=== PATIENT | male | born 1975 | race Caucasian/White ===

== ENCOUNTER 2018-03-25 14:15 | Emergency (ER) | payer MEDICARE ==
[2018-03-25 14:52] VITALS: BP 143/99
--- NOTE | 2018-03-25 16:40 | ED Physician Documentation ---
PD HPI DYSPNEA - Stated complaint Stated Complaint: DIFF BREATHING - Chief complaint Chief Complaint: Resp - History obtained from History obtained from: Patient PD PAST MEDICAL HISTORY - Present Medications Home Medications: Ambulatory Orders Medication Instructions Recorded Confirmed Albuterol Sulf [Ventolin Hfa 1 - 2 puffs INH Q4HR PRN 03/25/18 03/25/18 Inhaler] - Allergies Allergies/Adverse Reactions: Allergies Allergy/AdvReac Type Severity Reaction Status Date / Time Penicillins Allergy Respiratory Verified 03/25/18 14:52 Results - Vitals Vitals: Vital Signs - 24 hr 03/25/18 14:48 Temperature 36.4 C L Heart Rate 116 H Respiratory 20 Rate Blood Pressure 143/99 H O2 Saturation 99 Oxygen O2 Source Room air PD MEDICAL DECISION MAKING - Sepsis Event Vital Signs: Vital Signs - 24 hr 03/25/18 14:48 Temperature 36.4 C L Heart Rate 116 H Respiratory 20 Rate Blood Pressure 143/99 H O2 Saturation 99 Oxygen O2 Source Room air
== END 2018-03-25 17:17 | disposition left against medical advice (07) ==
LOC: ED 14:15
DX: Z53.21 Procedure and treatment not carried out due to patient leaving prior to being seen by health care provider (principal)

== ENCOUNTER 2018-03-26 15:01 | Outpatient (CLI) | payer MEDICARE, MEDICAID | END 2018-03-26 15:02 | disposition critical access hospital (66) | LOC: EMS 15:01 | PROVIDERS: ATTEND Surgery | DX: M25.561 Pain in right knee (principal); M79.604 Pain in right leg | CPT/HCPCS: A0425; A0429 ==

== ENCOUNTER 2018-03-26 15:37 | Emergency (ER) | payer MEDICAID, MEDICARE ==
[2018-03-26] MEDS ORDERED: CYCLOBENZAPRINE 10 MG TABLET PO STA (16:18)
[2018-03-26] MEDS ORDERED: IBUPROFEN 400 MG TABLET PO STA (16:18)
[2018-03-26] MEDS ORDERED: ALBUTEROL NEB 2.5 MG/3 ML INH STA (16:19)
--- NOTE | 2018-03-26 17:03 | Ultrasound Report ---
Procedure Date: 03/26/2018 Accession Number: [id number] / [id number] Procedure: US - Duplex Ext Veins Right CPT Code: FULL RESULT: EXAM: RIGHT LOWER EXTREMITY VENOUS ULTRASOUND EXAM DATE: 03/26/2018 04:45 PM. CLINICAL HISTORY: History of deep venous thrombosis. Right leg pain. COMPARISON: None. TECHNIQUE: Real-time sonographic vascular imaging was performed by the box blank machine operator through the lower extremity utilizing both color-flow and Doppler spectral analysis. Multiple charter representative static images were saved for review. FINDINGS: Common Femoral Vein (CFV): Normal. CFV-GSV Junction: Normal. Profunda Femoral Vein (PFV): Normal. Femoral Vein (FV) Prox: Normal. Femoral Vein (FV) Mid: Normal. Femoral Vein (FV) Dist: Normal. Popliteal Vein: Normal. Posterior Tibial Veins: Normal. Peroneal Veins: Normal. Contralateral Side CFV: Not interrogated. Other: None. IMPRESSION: No evidence for deep venous thrombosis. RADIA
--- NOTE | 2018-03-26 17:25 | ED Physician Documentation ---
History of Present Illness - Stated complaint Stated Complaint: KNEE PX - Chief complaint Chief Complaint: General - Additonal information Additional information: hx from pt 42 male states hx blodo clots no on blood thinners fairly active awoke with pain to L cald, lateral popliteal region and thigh to groin no swelling no redness mild cough and occ wheeze but has seasonal allergies and asthma and needs a new MDI Review of Systems Cardiac: denies: Chest pain / pressure Respiratory: reports: Cough, Wheezing. denies: Dyspnea Musculoskeletal: reports: Extremity pain. denies: Extremity swelling Endocrine: denies: Easy bruising / bleeding Immunocompromised: denies: Immunocompromised PD PAST MEDICAL HISTORY - Past Medical History Past Medical History: Yes Cardiovascular: None Respiratory: Asthma Neuro: None Endocrine/Autoimmune: None GI: GERD : None HEENT: None Psych: Depression, Anxiety, Bipolar disorder, Schizophrenia Musculoskeletal: None Derm: None - Past Surgical History Past Surgical History: Yes - Present Medications Home Medications: Ambulatory Orders Medication Instructions Recorded Confirmed Albuterol Sulf [Ventolin Hfa 1 - 2 puffs INH Q4HR PRN 03/25/18 03/26/18 Inhaler] Albuterol Sulfate [Proair Hfa 2 puffs INH Q4H PRN #1 inhaler 03/26/18 Inhaler] Ibuprofen [Motrin] 400 mg PO Q6H PRN #30 tablet 03/26/18 - Allergies Allergies/Adverse Reactions: Allergies Allergy/AdvReac Type Severity Reaction Status Date / Time Penicillins Allergy Respiratory Verified 03/25/18 14:52 - Social History Does the pt smoke?: Yes Smoking Status: Current some day smoker Does the pt drink ETOH?: Yes Does the pt have substance abuse?: Yes Substance Use and Type: Marijuana - POLST Patient has POLST: No PD ED PE NORMAL - Vitals Vital signs reviewed: Yes - Cardiac Cardiac: RRR - Respiratory Respiratory: Other (mild wheeze good air movement) - Abdomen Abdomen: Soft, Non tender - Extremities Extremities: Other (no edema, no redness, no warmth, TTP lateral calf and politeal region s cord and to ant thigh, MSV intact) Results - Vitals Vitals: Vital Signs - 24 hr 03/26/18 15:39 Temperature 37.3 C Heart Rate 77 Respiratory 14 Rate Blood Pressure 133/84 H O2 Saturation 95 Oxygen O2 Source Room air PD MEDICAL DECISION MAKING - Sepsis Event Vital Signs: Vital Signs - 24 hr 03/26/18 15:39 Temperature 37.3 C Heart Rate 77 Respiratory 14 Rate Blood Pressure 133/84 H O2 Saturation 95 Oxygen O2 Source Room air Departure - Departure Disposition: 01 Home, Self Care Clinical Impression: Leg strain Condition: Good Instructions: ED Strain Muscle Ext, Inhaler Metered Dose Dc, Asthma Dc Prescriptions: Albuterol Sulfate [Proair Hfa Inhaler] 2 puffs INH Q4H PRN #1 inhaler PRN Reason: Shortness Of Air/Wheezing Ibuprofen [Motrin] 400 mg PO Q6H PRN #30 tablet PRN Reason: Pain Comments: The ultrasound did not show a blood clot And the exam does not suggest an infection So the pain is likely muscular Recommend an LINDA wrap, ice and elevation as well as motrin and tylenol I have refilled you inhaler as well Return if worse - very rarely a small blood clot cannot be seen on initial imaging
[2018-03-26 17:43] VITALS: BP 130/80
== END 2018-03-26 17:42 | disposition home or self-care (01) ==
LOC: EDUNIT# → ED 15:37
DX: S86.901A Unspecified injury of unspecified muscle(s) and tendon(s) at lower leg level, right leg, initial encounter (principal)
CPT/HCPCS: 93971; 99283; A9270

== ENCOUNTER 2019-06-04 12:07 | Emergency (ER) | payer MEDICARE, MEDICAID ==
[2019-06-04 12:21] VITALS: BP 128/85
[2019-06-04] MEDS ORDERED: CHERRY SYRUP 10 ML UDC PO ONE (13:01)
[2019-06-04] MEDS ORDERED: DEXAMETHASONE 10 MG/ML VIAL PO STA (13:01)
--- NOTE | 2019-06-04 13:04 | ED Physician Documentation ---
PD HPI DYSPNEA - Stated complaint Stated Complaint: SOA/MED REFILL - Chief complaint Chief Complaint: Resp - History obtained from History obtained from: Patient - History of Present Illness Timing - onset: Today Timing - onset during: Rest Timing - duration: Hours Timing - details: Gradual onset, Still present Inciting event(s): Out of meds, URI Improved by: Inhaler/neb Worsened by: Exertion, Coughing, Allergens Associated symptoms: Cough, Wheezing Similar symptoms before: Diagnosis (asthma) Recently seen: Not recently seen - Additional information Additional information: 43-year-old homeless male with history of asthma has developed worsening of his symptoms and he ran out of his Ventolin inhaler this morning. He states that he thinks he has mostly environmental allergies and they are bothering him right now. He does have a cough and congestion and he has had a ruptured right TM previously. Review of Systems Constitutional: denies: Fever Eyes: denies: Decreased vision Ears: denies: Ear pain Nose: reports: Rhinorrhea / runny nose, Congestion Throat: denies: Sore throat Cardiac: denies: Chest pain / pressure, Palpitations Respiratory: reports: Dyspnea, Cough, Wheezing GI: denies: Vomiting PD PAST MEDICAL HISTORY - Past Medical History Past Medical History: Yes Cardiovascular: None Respiratory: Asthma Neuro: None Endocrine/Autoimmune: None GI: GERD : None HEENT: None Psych: Depression, Anxiety, Bipolar disorder, Schizophrenia Musculoskeletal: Chronic back pain Derm: None - Past Surgical History Past Surgical History: Yes - Present Medications Home Medications: Ambulatory Orders Medication Instructions Recorded Confirmed Albuterol Sulf [Ventolin Hfa 1 - 2 puffs INH Q4HR PRN 03/25/18 03/26/18 Inhaler] Albuterol Sulfate [Proair Hfa 2 puffs INH Q4H PRN #1 inhaler 03/26/18 Inhaler] Albuterol Sulf [Ventolin Hfa 1 - 2 puffs INH Q4HR PRN #1 inhaler 07/25/18 Inhaler] predniSONE [Prednisone] 40 mg PO DAILY #10 tablet 07/25/18 Albuterol Sulf [Ventolin Hfa 1 - 2 puffs INH Q4HR PRN #1 inhaler 06/04/19 Inhaler] Azithromycin [Zithromax] 250 mg PO DAILY #6 tablet 06/04/19 - Allergies Allergies/Adverse Reactions: Allergies Allergy/AdvReac Type Severity Reaction Status Date / Time Penicillins Allergy Respiratory Verified 06/04/19 12:20 - Social History Does the pt smoke?: Yes Smoking Status: Current every day smoker Does the pt drink ETOH?: Yes Does the pt have substance abuse?: Yes Substance Use and Type: Marijuana - Immunizations Immunizations are current?: Yes - POLST Patient has POLST: No PD ED PE NORMAL - Vitals Vital signs reviewed: Yes (hypertensive) - General General: Alert and oriented X 3, No acute distress, Well developed/nourished - HEENT HEENT: Atraumatic, PERRL, EOMI, Pharynx benign, Other (There is inflamation to the right TM and not to the left) - Neck Neck: Supple, no meningeal sign, No bony TTP - Cardiac Cardiac: RRR, No murmur - Respiratory Respiratory: No respiratory distress, Other (diminished breath sounds. ) - Abdomen Abdomen: Soft, Non tender - Back Back: No CVA TTP, No spinal TTP - Derm Derm: Normal color, Warm and dry, No rash - Extremities Extremities: No deformity, No edema - Neuro Neuro: Alert and oriented X 3, events manager 2-12 intact, No motor deficit, No sensory deficit, Normal speech Eye Opening: Spontaneous Motor: Obeys Commands Verbal: Oriented GCS Score: 15 - Psych Psych: Normal mood, Normal affect Results - Vitals Vitals: Vital Signs - 24 hr 06/04/19 12:17 Temperature 36.7 C Heart Rate 97 Respiratory 16 Rate Blood Pressure 128/85 H O2 Saturation 99 Oxygen O2 Source Room air PD MEDICAL DECISION MAKING - ED course Complexity details: reviewed old records, considered differential, d/w patient ED course: 43-year-old male with history of asthma has an exacerbation of symptoms and is run out of his Ventolin. He has otitis on exam and he is administered dexamethasone 10 mg orally we will place him on a course of zithromax and give him an albuterol inhaler. Departure - Departure Disposition: 01 Home, Self Care Clinical Impression: Asthma exacerbation Qualifiers: Asthma severity: mild Asthma persistence: intermittent Qualified Code(s): J45.21 - Mild intermittent asthma with (acute) exacerbation Otitis media Qualifiers: Otitis media type: suppurative Chronicity: acute Laterality: right Recurrence: non-recurrent Spontaneous tympanic membrane rupture: without spontaneous rupture Qualified Code(s): H66.001 - Acute suppurative otitis media without spontaneous rupture of ear drum, right ear Condition: Stable Instructions: ED Otitis Media Acute Adult, ED Reactive Airway Disease Follow-Up: [facility] [Provider Group] Prescriptions: Albuterol Sulf [Ventolin Hfa Inhaler] 1 - 2 puffs INH Q4HR PRN #1 inhaler PRN Reason: Shortness Of Air/Wheezing Azithromycin [Zithromax] 250 mg PO DAILY #6 tablet
== END 2019-06-04 13:12 | disposition home or self-care (01) ==
LOC: ED 12:07
DX: J45.21 Mild intermittent asthma with (acute) exacerbation (principal); H66.001 Acute suppurative otitis media without spontaneous rupture of ear drum, right ear; F17.200 Nicotine dependence, unspecified, uncomplicated; Z76.0 Encounter for issue of repeat prescription
CPT/HCPCS: 99282; 99284; A9270

== ENCOUNTER 2020-06-02 03:20 | Outpatient (CLI) | payer MEDICARE, MEDICAID | END 2020-06-02 03:21 | disposition EMS.NT | LOC: EMS 03:20 | PROVIDERS: ATTEND Surgery | DX: R06.02 Shortness of breath (principal) ==

== ENCOUNTER 2020-06-04 07:16 | Outpatient (CLI) | payer MEDICARE, MEDICAID | END 2020-06-04 07:17 | disposition EMS.NT | LOC: EMS 07:16 | PROVIDERS: ATTEND Surgery | DX: R06.00 Dyspnea, unspecified (principal); R06.2 Wheezing ==

== ENCOUNTER 2020-06-05 01:18 | Outpatient (CLI) | payer MEDICARE, MEDICAID | END 2020-06-05 01:19 | disposition EMS.NT | LOC: EMS 01:18 | PROVIDERS: ATTEND Surgery | DX: R05 Cough (principal); R06.2 Wheezing ==

== ENCOUNTER 2020-07-15 10:32 | Emergency (ER) | payer MEDICARE, MEDICAID ==
[2020-07-15 10:44] VITALS: BP 141/94
[2020-07-15] MEDS ORDERED: CLINDAMYCIN 150 MG CAPSULE PO STA (10:45)
--- NOTE | 2020-07-15 10:47 | ED Physician Documentation ---
History of Present Illness - Stated complaint Stated Complaint: TEETH PX - Chief complaint Chief Complaint: Wound - History obtained from History obtained from: Patient - History of Present Illness Timing: How many days ago (several) Pain level max: 5 Pain level now: 4 - Additonal information Additional information: states dental pain for the past several days. worse with eating and drinking. nothing makes it better. No fevers or chills. no vomiting. Review of Systems Constitutional: denies: Fever, Chills GI: denies: Vomiting Skin: denies: Rash Musculoskeletal: denies: Neck pain, Back pain Neurologic: denies: Headache PD PAST MEDICAL HISTORY - Past Medical History Cardiovascular: None Respiratory: Asthma Neuro: None Endocrine/Autoimmune: None GI: GERD : None HEENT: None Psych: Depression, Anxiety, Bipolar disorder, Schizophrenia Musculoskeletal: Chronic back pain Derm: None - Past Surgical History Past Surgical History: Yes - Present Medications Home Medications: Ambulatory Orders Medication Instructions Recorded Confirmed Albuterol Sulf [Ventolin Hfa 1 - 2 puffs INH Q4HR PRN 03/25/18 07/15/20 Inhaler] Albuterol Sulf [Ventolin Hfa 1 - 2 puffs INH Q4HR PRN #1 inhaler 07/15/20 Inhaler] clindamycin HCL [Cleocin HCl] 300 mg PO Q6H #40 capsule 07/15/20 - Allergies Allergies/Adverse Reactions: Allergies Allergy/AdvReac Type Severity Reaction Status Date / Time Penicillins Allergy Respiratory Verified 07/15/20 10:44 - Social History Does the pt smoke?: Yes Smoking Status: Current every day smoker Does the pt drink ETOH?: Yes Does the pt have substance abuse?: Yes - Immunizations Immunizations are current?: Yes - POLST Patient has POLST: No PD ED PE NORMAL - Vitals Vital signs reviewed: Yes - General General: Alert and oriented X 3, No acute distress - HEENT HEENT: Moist mucous membranes, Other (poor dentition throughout) - Neck Neck: Supple, no meningeal sign - Cardiac Cardiac: RRR - Respiratory Respiratory: No respiratory distress, Clear bilaterally - Derm Derm: Warm and dry - Neuro Neuro: Alert and oriented X 3 - Psych Psych: Normal mood, Normal affect Results - Vitals Vitals: Vital Signs - 24 hr 07/15/20 10:39 Temperature 36.5 C Heart Rate 96 Respiratory 18 Rate Blood Pressure 141/94 H O2 Saturation 97 Oxygen O2 Source Room air PD MEDICAL DECISION MAKING - ED course Complexity details: considered differential, d/w patient ED course: Patient with dental caries and dental pain. We will place on clindamycin for home. He is also out of his albuterol and requests a refill. This was done. Normal phonation. No trismus. No facial swelling. no abscess. Patient counseled regarding signs and symptoms for which I believe and urgent re- evaluation would be necessary. Patient with good understanding of and agreement to plan and is comfortable going home at this time This document was made in part using voice recognition software. While efforts are made to proofread this document, sound alike and grammatical errors may occur. Departure - Departure Disposition: 01 Home, Self Care Clinical Impression: Dental caries Condition: Good Instructions: ED Tooth Pain Follow-Up: [facility] [Provider Group] Prescriptions: Albuterol Sulf [Ventolin Hfa Inhaler] 1 - 2 puffs INH Q4HR PRN #1 inhaler PRN Reason: Shortness Of Air/Wheezing clindamycin HCL [Cleocin HCl] 300 mg PO Q6H #40 capsule Comments: Take all antibiotics until gone. Follow-up with a dentist for further care. Return if you worsen.
== END 2020-07-15 11:05 | disposition home or self-care (01) ==
LOC: ED 10:32
DX: K02.9 Dental caries, unspecified (principal); J45.909 Unspecified asthma, uncomplicated; F17.200 Nicotine dependence, unspecified, uncomplicated
CPT/HCPCS: 99282; 99284; A9270

== ENCOUNTER 2020-07-21 13:35 | Emergency (ER) | payer MEDICARE, MEDICAID ==
--- NOTE | 2020-07-21 14:14 | ED Physician Documentation ---
History of Present Illness - Stated complaint Stated Complaint: SORE ON FACE - Chief complaint Chief Complaint: Wound - Additonal information Additional information: 44-year-old male presents the emergency department for evaluation of a pimple on the right side of his right nasolabial fold. He states it started about a week ago. He typically is able to express clear fluid from it. He has been on clindamycin recently for a tooth infection and remains on that prescription. He has no fevers or facial swelling. Review of Systems Constitutional: reports: Reviewed and negative Eyes: reports: Reviewed and negative Ears: reports: Reviewed and negative Nose: reports: Reviewed and negative Throat: reports: Dental pain / toothache Cardiac: reports: Reviewed and negative Respiratory: reports: Reviewed and negative GI: reports: Reviewed and negative : reports: Reviewed and negative Skin: reports: Lesions (carbuncle right nasal labial fold) Musculoskeletal: reports: Reviewed and negative Neurologic: reports: Reviewed and negative PD PAST MEDICAL HISTORY - Past Medical History Past Medical History: Yes Cardiovascular: None Respiratory: Asthma Neuro: None Endocrine/Autoimmune: None GI: GERD : None HEENT: None Psych: Depression, Anxiety, Bipolar disorder, Schizophrenia Musculoskeletal: Chronic back pain Derm: None - Past Surgical History Past Surgical History: Yes - Present Medications Home Medications: Ambulatory Orders Medication Instructions Recorded Confirmed Albuterol Sulf [Ventolin Hfa 1 - 2 puffs INH Q4HR PRN #1 inhaler 07/15/20 Inhaler] clindamycin HCL [Cleocin HCl] 300 mg PO Q6H #40 capsule 07/15/20 Mupirocin Calcium [Mupirocin] 30 gm TP TID #1 tube 07/21/20 - Allergies Allergies/Adverse Reactions: Allergies Allergy/AdvReac Type Severity Reaction Status Date / Time Penicillins Allergy Respiratory Verified 07/21/20 13:47 - Social History Does the pt smoke?: Yes Smoking Status: Current every day smoker Does the pt drink ETOH?: Yes Does the pt have substance abuse?: Yes - Immunizations Immunizations are current?: Yes - POLST Patient has POLST: No PD ED PE EXPANDED - General General: Alert, No acute distress, Well developed/nourished - HEENT HEENT: Other (3 mm carbuncle right nasolabial fold. Clear drainage. No surrounding erythema or fluctuance.) - Neck Neck: Supple w/out meningeal sx, No tenderness - Cardiac Cardiac: Regular Rate, Radial strong equal - Respiratory Respiratory: Clear to ausultation lolis. No: Distress, Labored Results - Vitals Vitals: Vital Signs - 24 hr 07/21/20 13:39 Temperature 36.3 C L Heart Rate 80 Respiratory 16 Rate Blood Pressure 156/100 H O2 Saturation 97 Oxygen O2 Source Room air PD MEDICAL DECISION MAKING - ED course Complexity details: d/w patient ED course: 44-year-old male presents to the emergency department with a furunicle/pimple on the right nasolabial fold. On exam there does not appear to be any significant surrounding erythema. He does have clear drainage but no fluctuance. I do not feel that he would benefit from incision and drainage. At this time I will recommend a warm compress over the carbuncle. I will also prescribe mupirocin ointment. He is to continue the clindamycin that is already taken for his dental infection. Emergent return precautions discussed Departure - Departure Disposition: 01 Home, Self Care Clinical Impression: Carbuncle and furuncle of face Condition: Stable Record reviewed to determine appropriate education?: Yes Instructions: Carbuncles Prescriptions: Mupirocin Calcium [Mupirocin] 30 gm TP TID #1 tube Comments: Mitchel please apply a warm compress to your boil for 10 minutes 3 times a day. It would not benefit from incision and drainage today. After you place the warm compress then apply the antibiotic ointment as prescribed. Please complete the clindamycin that you are already taking. If you develop fevers, have facial swelling or feel that the infection is not improving return to the ER for a second look
[2020-07-21 14:23] VITALS: BP 148/99
== END 2020-07-21 14:23 | disposition home or self-care (01) ==
LOC: ED 13:35
DX: J34.0 Abscess, furuncle and carbuncle of nose (principal); F17.200 Nicotine dependence, unspecified, uncomplicated
CPT/HCPCS: 99282; 99283

== ENCOUNTER 2023-11-27 21:22 | Outpatient (CLI) | payer MEDICARE, MEDICAID | END 2023-11-27 23:59 | disposition critical access hospital (66) | LOC: EMS 21:22 | DX: J45.909 Unspecified asthma, uncomplicated (principal); R45.1 Restlessness and agitation; R61 Generalized hyperhidrosis; R09.89 Other specified symptoms and signs involving the circulatory and respiratory systems; Y08.89XA Assault by other specified means, initial encounter | CPT/HCPCS: A0425; A0427 ==

== ENCOUNTER 2023-11-27 21:44 | Emergency (ER) | payer MEDICARE, MEDICAID ==
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
[2023-11-27] MEDS: ALBUTEROL NEB 2.5 MG/3 ML INH STA (23:32)
--- NOTE | 2023-11-28 00:24 | XRAY Report ---
PROCEDURE: Chest 1V INDICATIONS: chest pain TECHNIQUE: One view of the chest was acquired. COMPARISON: None. FINDINGS: Surgical changes and devices: None. Lungs and pleura: Hyperinflation consistent with COPD. There is a 1 nodule in the left upper lung zo ne. No pleural effusions or pneumothorax. Lungs are clear. Mediastinum: Mediastinal contours appear normal. Heart size is normal. Bones and chest wall: No suspicious bony lesions. Overlying soft tissues appear unremarkable. IMPRESSION: 1. No acute cardiopulmonary process. 2. COPD. 3. A 1 cm nodule in the left upper lung zone. Recommend nonemergent chest CT for follow-up evaluation . Reviewed by: Tim Geller MD on 11/28/2023 12:22 AM PDT Approved by: Tim Geller MD on 11/28/2023 12:22 AM PDT Station ID: [id number]
[2023-11-28 02:23] VITALS: BP 133/95; O2SAT 93
== END 2023-11-28 02:20 | disposition home or self-care (01) ==
LOC: EDUNIT# → ED 21:44
DX: J45.901 Unspecified asthma with (acute) exacerbation (principal); F17.200 Nicotine dependence, unspecified, uncomplicated; Z79.899 Other long term (current) drug therapy
CPT/HCPCS: 94640; 99283; 99284

== ENCOUNTER 2024-03-02 14:52 | Emergency (ER) | payer MEDICARE, MEDICAID ==
[2024-03-02] MEDS: IPRATROPIUM/ALBUTEROL 3 ML NEB INH STA (15:30)
--- NOTE | 2024-03-02 15:32 | ED Physician Documentation ---
History of Present Illness - Stated complaint Stated Complaint: SOA - Chief complaint Chief Complaint: Resp - History obtained from History obtained from: Patient - History of Present Illness Pain level max: 0 Pain level now: 0 - Additonal information Additional information: 48-year-old male presents to the emergency department stating that he has a history of asthma, also smokes daily. He states that he is out of his albuterol. He states he used to be on long-acting inhalers but has not followed up with his doctor to get these refilled. He is complaining of increased shortness of breath. No fevers. No chills. Cough is mostly dry. Has wheezing. No abdominal pain, nausea, vomiting. No rhinorrhea or congestion. Requesting a refill of his albuterol and a course of steroids. Review of Systems Constitutional: denies: Fever, Chills Nose: denies: Rhinorrhea / runny nose Throat: denies: Sore throat Cardiac: denies: Chest pain / pressure Respiratory: reports: Dyspnea, Wheezing. denies: Cough GI: denies: Abdominal Pain, Vomiting, Diarrhea Skin: denies: Rash PD PAST MEDICAL HISTORY - Past Medical History Past Medical History: Yes Cardiovascular: None Respiratory: Asthma Neuro: None Endocrine/Autoimmune: None GI: GERD : None HEENT: None Psych: Depression, Anxiety, Bipolar disorder, Schizophrenia Musculoskeletal: Chronic back pain Derm: None - Past Surgical History Past Surgical History: Yes - Present Medications Home Medications: Ambulatory Orders Medication Instructions Recorded Confirmed Albuterol Sulf [Ventolin Hfa 1 - 2 puffs INH Q4HR PRN #1 inhaler 07/15/20 Inhaler] clindamycin HCL [Cleocin HCl] 300 mg PO Q6H #40 capsule 07/15/20 Mupirocin Calcium [Mupirocin] 30 gm TP TID #1 tube 07/21/20 predniSONE [Deltasone] 10 mg PO [id number] #42 tab 11/28/23 Albuterol Sulf [Ventolin Hfa 1 - 2 puffs INH Q4HR PRN #1 each 03/02/24 Inhaler] predniSONE [Deltasone] 10 mg PO [id number] #42 tab 03/02/24 - Allergies Allergies/Adverse Reactions: Allergies Allergy/AdvReac Type Severity Reaction Status Date / Time Penicillins Allergy Respiratory Verified 03/02/24 14:56 - Social History Does the pt smoke?: Yes Smoking Status: Current every day smoker Does the pt drink ETOH?: Yes Does the pt have substance abuse?: Yes - Immunizations Immunizations are current?: Yes - POLST Patient has POLST: No PD ED PE NORMAL - Vitals Vital signs reviewed: Yes - General General: Alert and oriented X 3, No acute distress - HEENT HEENT: Moist mucous membranes - Neck Neck: Supple, no meningeal sign - Cardiac Cardiac: RRR - Respiratory Respiratory: No respiratory distress, Other (mild wheezing B) - Abdomen Abdomen: Soft, Non tender, Non distended - Derm Derm: Warm and dry - Extremities Extremities: No edema, No calf tenderness / cord - Neuro Neuro: Alert and oriented X 3 - Psych Psych: Normal mood, Normal affect Results - Vitals Vitals: Vital Signs - 24 hr 03/02/24 03/02/24 03/02/24 14:56 15:32 15:45 Temperature 36.8 C 36.8 C Heart Rate 100 78 72 Respiratory 16 16 16 Rate Blood Pressure 140/88 H 130/80 O2 Saturation 98 100 Oxygen O2 Source Room air PD Medical Decision Making - ED course Complexity details: re-evaluated patient, considered differential, d/w patient ED course: Patient with a known history of asthma. He is also a known smoker. Given nebulizer treatments here. Feels much better. No hypoxia or respiratory distress. Given steroids here as well. We will place on steroids for Home. We will also prescribe a new inhaler for him. Recommend he follow up with his primary care provider to be prescribed a long acting beta agonist and other maintenance medications for his asthma. Patient counseled regarding signs and symptoms for which I believe an urgent re-evaluation would be necessary. Patient with good understanding of and agreement to plan and is comfortable going home at this time. This document was made in part using voice recognition software. While efforts are made to proofread this document, sound alike and grammatical errors may occur. Departure - Departure Disposition: 01 Home, Self Care Clinical Impression: Asthma exacerbation Qualifiers: Asthma severity: unspecified severity Asthma persistence: unspecified Qualified Code(s): J45.901 - Unspecified asthma with (acute) exacerbation Condition: Good Instructions: ED Reactive Airway Disease Follow-Up: KRYSTINA GUARDADO ARNP [Physician No Access] - KRYSTINA GUARDADO [employer] [Physician No Access] - Prescriptions: Albuterol Sulf [Ventolin Hfa Inhaler] 1 - 2 puffs INH Q4HR PRN #1 each PRN Reason: Shortness Of Air/Wheezing predniSONE [Deltasone] 10 mg PO [id number] #42 tab Comments: Your prescriptions were sent to [facility] in [place]. Please use the medication as prescribed. Recommend they follow-up with your primary care provider or walk-in clinic to discuss long-acting medications to help control your asthma. Forms: PCP List Discharge Date/Time: 03/02/24 15:45
[2024-03-02] MEDS: predniSONE 20 MG TABLET PO STA (15:35)
[2024-03-02 15:47] VITALS: BP 130/80; O2SAT 100
== END 2024-03-02 15:45 | disposition home or self-care (01) ==
LOC: ED 14:52
DX: J45.901 Unspecified asthma with (acute) exacerbation (principal); F17.210 Nicotine dependence, cigarettes, uncomplicated
CPT/HCPCS: 94640; 99283; 99284; J7512

== ENCOUNTER 2024-04-26 08:35 | Emergency (ER) | payer MEDICARE, MEDICAID ==
--- NOTE | 2024-04-26 08:53 | ED Physician Documentation ---
PD HPI URI - Stated complaint Stated Complaint: SOA,COUGHING UP BLOOD - Chief complaint Chief Complaint: Resp - History obtained from History obtained from: Patient - History of Present Illness Timing - onset: How many days ago (few) Timing duration: Days Timing details: Gradual onset, Still present Associated symptoms: Chills, Sinus pain, Productive cough, Hemoptysis (last night and today, streaks of blood with sputum.). No: Nasal congestion, Sore throat Contributing factors: COPD / asthma. No: Sick contact, Immunocompromised PD PAST MEDICAL HISTORY - Past Medical History Past Medical History: Yes Cardiovascular: Hypertension Respiratory: Asthma, COPD Neuro: None Endocrine/Autoimmune: None GI: GERD : None HEENT: None Psych: Depression, Anxiety, Bipolar disorder, Schizophrenia, Post traumatic stress disorder Musculoskeletal: Chronic back pain Derm: None - Past Surgical History Past Surgical History: Yes - Present Medications Home Medications: Ambulatory Orders Medication Instructions Recorded Confirmed Albuterol Sulf [Ventolin Hfa 1 - 2 puffs INH Q4HR PRN #1 inhaler 07/15/2004/11 Inhaler] Benzonatate [Tessalon] 100 mg PO TID PRN #20 cap 04/26/24 Doxycycline Hyclate 100 mg PO BID 7 Days #14 cap 04/26/24 Mometasone/Formoterol [Dulera 200 1 - 2 puffs IH DAILY 04/26/24 04/26/24 Mcg-5 Mcg Inhaler] dexAMETHasone [Decadron] 4 mg PO DAILY #10 tablet 04/26/24 - Allergies Allergies/Adverse Reactions: Allergies Allergy/AdvReac Type Severity Reaction Status Date / Time Penicillins Allergy Respiratory Verified 04/26/24 08:38 - Social History Does the pt smoke?: Yes Smoking Status: Current every day smoker Does the pt drink ETOH?: Yes ETOH Use: Beer Does the pt have substance abuse?: Yes Substance Use and Type: Marijuana - Immunizations Immunizations are current?: No Immunizations: Other immun not current - POLST Patient has POLST: No PD ED PE NORMAL - Vitals Vital signs reviewed: Yes - General General: Alert and oriented X 3, Well developed/nourished - HEENT HEENT: Pharynx benign - Neck Neck: Supple, no meningeal sign, No adenopathy - Cardiac Cardiac: RRR (mild tchycardia), No murmur - Respiratory Respiratory: No: Clear bilaterally (no coarse sounds but does have diminished tidal volume and significant holoexpiratory wheezing. No accessory muscle use. ) - Abdomen Abdomen: Soft, Non tender - Derm Derm: Normal color, Warm and dry Results - Vitals Vitals: Vital Signs - 24 hr 04/26/24 04/26/24 04/26/24 08:39 09:00 09:34 Temperature 36.5 C Heart Rate 105 H 90 96 Respiratory 20 16 16 Rate Blood Pressure 149/97 H 140/97 H O2 Saturation 95 94 If not protocol : Oxygen Flow, liters/minute 04/26/24 04/26/24 04/26/24 10:15 11:00 11:03 Temperature 37.2 C Heart Rate 102 H 92 90 Respiratory 16 20 16 Rate Blood Pressure 126/93 H O2 Saturation 87 L 93 If not protocol 2 : Oxygen Flow, liters/minute 04/26/24 04/26/24 11:26 11:56 Temperature 36.4 C L Heart Rate 96 100 Respiratory 16 16 Rate Blood Pressure 131/84 H O2 Saturation 90 L If not protocol : Oxygen Flow, liters/minute Oxygen O2 Source Room air Oxygen Flow Rate 2 - Rads (name of study) chest xray Relevant Findings:: Prelim report reviewed, EMP independent interpretation of test (hyperinflated c/w COPD. No infiltrates. Normal mediastinual appearance. ) PD Medical Decision Making - ED course Complexity details: re-evaluated patient (he states considerable improvement in his breathing after 3 neb treatments. Oxygenation is still borderline at 89-90%, with baseline appearing 93-95% on prior ED visits February and October.), considered differential (patient with asthma?COPD and uses MDIs daily. No usual oxygen use. Recently with cough and congestion, wheezing despite albuterol MDI, and noted some white sputum with streaks of blood in it since yesterday. ), d/w patient ED course: pt with cough and sputum without congestion nor sore throat. Does have aches and chills for few days. Presum viral type illness. Has some blood streak with sputum since yesterday, small amounts. Using his Albuterol MDI frequently with mod improvement. Using dialy inhaler as well (Fometerol and Memetasone). CXR is clear without infiltrates nor obvious masses. Did not do viral panel as would not change treatment per se> With history of asthma,conccer would be primary or secondary bacterial aspect, so abx with steroids would be appropriate. He is breathing comfortably after nebs. Sats borderline hypoxic, but pt does not want to stay in hospital. He states feeling better right now and will return if worsens. Otherwise to see effect of steroids/abx. His reason for not wanting hospitaliztion is feeling anxious in regular rooms/etc, claustrophobia, and he is purposefully homeless. Departure - Departure Disposition: 01 Home, Self Care Clinical Impression: Cough, Dyspnea, Exacerbation of asthma, Upper respiratory infection Condition: Stable Record reviewed to determine appropriate education?: Yes Follow-Up: [facility] [Provider Group] [facility] [Provider Group] [facility] [Provider Group] Prescriptions: dexAMETHasone [Decadron] 4 mg PO DAILY #10 tablet Doxycycline Hyclate 100 mg PO BID 7 Days #14 cap Benzonatate [Tessalon] 100 mg PO TID PRN #20 cap PRN Reason: Cough Comments: Your wheezing has improved of quite a bit with the treatments here and you cysts are saying that your breathing is much more comfortable. Your oxygenation level is still borderline low. It is unclear whether that is more your baseline given your underlying asthma but I am assuming it is using not this low per se. If you are noticing worsening trouble breathing or shortness of breath, please return to the ER and we could do more breathing treatments and consider even overnight hospitalization with continued treatment until things improve. We are unable to set up portable her home oxygen for you outpatient so added oxygen therapy would require being in the hospital short-term. Otherwise I would anticipate improvement through the day with a combination of continued inhaler plus the effect of the steroid and antibiotics through the day. I sent your prescriptions to [facility] pharmacy in [facility]. Use the antibiotics twice daily for a week and a steroid daily for 10 days. I also prescribed benzonatate to help with cough. Your chest x-ray does not show any signs of pneumonia. The blood with the sputum and cough is most commonly an irritation in the bronchioles from the inflammation and infection. This will decrease in improve as the coughing and irritation improve. Return if notable increased amount of blood. Forms: PCP List Discharge Date/Time: 04/26/24 12:24
[2024-04-26] MEDS: ALBUTEROL NEB 2.5 MG/3 ML INH STA ×2 (09:30→11:26)
[2024-04-26] MEDS: BENZONATATE 100 MG CAPSULE PO STA (09:31)
[2024-04-26] MEDS: dexAMETHasone 4 MG TABLET PO STA (09:31)
[2024-04-26] MEDS: DOXYCYCLINE 100 MG TABLET PO STA (09:31)
--- NOTE | 2024-04-26 09:39 | XRAY Report ---
PROCEDURE: Chest 2V INDICATIONS: cough/soa TECHNIQUE: 2 views of the chest were acquired. COMPARISON: None. FINDINGS: Surgical changes and devices: None. Lungs and pleura: The lungs are hyperinflated and the hemidiaphragms are flattened. There is no pleu ral effusion, consolidation, or pneumothorax. Mediastinum: Mediastinal contours appear normal. Heart size is normal. Bones and chest wall: No suspicious bony lesions. Overlying soft tissues appear unremarkable. IMPRESSION: Findings of COPD without acute cardiopulmonary process. Reviewed by: Pratibha Hurley MD on 04/26/2024 8:38 AM [place] Approved by: Pratibha Hurley MD on 04/26/2024 8:38 AM [place] Station ID: [id number]
[2024-04-26] MEDS: IPRATROPIUM/ALBUTEROL 3 ML NEB INH STA (10:14)
[2024-04-26 12:05] VITALS: BP 131/84; O2SAT 90
== END 2024-04-26 12:24 | disposition home or self-care (01) ==
LOC: ED 08:35
DX: J45.901 Unspecified asthma with (acute) exacerbation (principal); J06.9 Acute upper respiratory infection, unspecified; R05.9 Cough, unspecified; R06.00 Dyspnea, unspecified; I10 Essential (primary) hypertension; J44.9 Chronic obstructive pulmonary disease, unspecified; Z79.899 Other long term (current) drug therapy; F17.200 Nicotine dependence, unspecified, uncomplicated; Z59.00 Homelessness unspecified
CPT/HCPCS: 71046; 94640; 94664; 99284; 99285; A9270; J8540